=== PATIENT | female | born 1980 | race African-American/Black ===

== ENCOUNTER 2023-05-20 00:28 | Emergency (ER) | payer MEDICAID ==
[2023-05-20] MEDS ORDERED: Acetaminophen 500 MG Tab ONE (03:29)
[2023-05-20] MEDS ORDERED: Ondansetron 4 MG Tab.DIS ONE (03:29)
[2023-05-20] MEDS ORDERED: amLODIPine 5 MG Tab ONE (03:29)
[2023-05-20] MEDS ORDERED: Hydrochlorothiazide 25 MG Tab ONE (03:29)
[2023-05-20 08:58] LABS: A/G RATIO 0.8 (0.9-1.6); ALBUMIN 3.6 g/dL (3.4-5.0); BASOPHILS PERCENT AUTO 0.6 % (0.0-1.5); BILIRUBIN TOTAL 0.3 mg/dL (0.2-1.0); CALCIUM 8.9 mg/dL (8.5-10.1); CARBON DIOXIDE,CO2 26.6 mmol/L (21.0-32.0); CREATININE 0.8 mg/dL (0.6-1.0); EOSINOPHILS ABSOLUTE AUTO 0.1 K/uL (0.0-0.7); EOSINOPHILS PERCENT AUTO 1.5 % (0.0-7.0); EST CRCL DRUG DOSING (CG) 102.39 mL/min; HEMATOCRIT 35.7 % (36.0-46.0); HEMOGLOBIN 11.3 g/dL (12.0-16.0); LYMPHOCYTES ABSOLUTE AUTO 2.3 K/uL (0.6-2.4); MEAN CORPUSCULAR HEMOGLOBIN 27.6 pg (27.0-32.0); MEAN CORPUSCULAR HGB CONC 31.7 g/dL (31.0-37.0); MEAN CORPUSCULAR VOLUME 87.1 fL (80.0-98.0); MONOCYTES ABSOLUTE AUTO 0.4 K/uL (0.0-0.8); NEUTROPHILS ABSOLUTE AUTO 2.7 K/uL (1.4-5.7); NEUTROPHILS PERCENT AUTO 48.9 % (48.0-80.0); NRBC ABSOLUTE 0 K/uL; PLATELET COUNT,PLT 261 K/uL (150-400); POTASSIUM,K 3.7 mmol/L (3.5-5.1); WHITE BLOOD CELL COUNT,WBC 5.45 K/uL (4.0-11.0)
== END 2023-05-20 05:25 | disposition home or self-care (01) ==
LOC: MW.ED 00:28
DX: I10 Essential (primary) hypertension (principal)
CPT/HCPCS: 36415; 71045; 80053; 84484; 85025; 93005; 99284; A9270

== ENCOUNTER 2023-10-10 17:59 | Emergency (ER) | payer MEDICAID ==
[2023-10-10] MEDS ORDERED: Sodium Chloride 0.9% 10 ML Syringe FLUSH PRN (18:26)
[2023-10-10] MEDS ORDERED: Sodium Chloride 0.9% 2.5 ML Syringe FLUSH PRN (18:26)
[2023-10-10] MEDS ORDERED: Acetaminophen 500 MG Tab PO STA (18:29)
[2023-10-10] MEDS ORDERED: amLODIPine 5 MG Tab PO STA (18:29)
[2023-10-10] MEDS ORDERED: Hydrochlorothiazide 25 MG Tab PO STA (18:29)
[2023-10-10 18:41] LABS: BASOPHILS ABSOLUTE AUTO 0.06 K/uL (0.00-0.20); BASOPHILS PERCENT AUTO 0.7 % (0.0-1.0); EOSINOPHILS ABSOLUTE AUTO 0.11 K/uL (0.00-0.45); EOSINOPHILS PERCENT AUTO 1.2 % (0.0-6.0); HEMATOCRIT 31.5 % (37.0-47.0); HEMOGLOBIN 10.1 g/dL (12.0-16.0); IMMATURE GRAN ABSOLUTE AUTO 0.02 K/uL (0.00-0.05); IMMATURE GRAN PERCENT AUTO 0.2 % (0.0-0.4); LYMPHOCYTES ABSOLUTE AUTO 2.36 K/uL (1.00-4.80); LYMPHOCYTES PERCENT AUTO 26.7 % (24.0-44.0); MEAN CORPUSCULAR HEMOGLOBIN 28.4 pg (28.0-32.0); MEAN CORPUSCULAR HGB CONC 32.1 g/dL (32.0-36.0); MEAN CORPUSCULAR VOLUME 88.5 fL (83.0-99.0); MEAN PLATELET VOLUME 11.5 fL (9.4-12.3); MONOCYTES PERCENT AUTO 7.9 % (0.0-8.0); NEUTROPHILS ABSOLUTE AUTO 5.59 K/uL (1.80-7.70); NEUTROPHILS PERCENT AUTO 63.3 % (41.0-71.0); PLATELET COUNT,PLT 252 K/uL (150-400); RED BLOOD CELL COUNT 3.56 M/uL (4.10-5.30); WHITE BLOOD CELL COUNT,WBC 8.84 K/uL (3.9-11.3)
[2023-10-10 19:09] LABS: A/G RATIO 0.9 (0.9-1.6); ALBUMIN 3.5 g/dL (3.4-5.0); BILIRUBIN TOTAL 0.2 mg/dL (0.2-1.0); CALCIUM 8.8 mg/dL (8.5-10.1); CARBON DIOXIDE,CO2 28.8 mmol/L (21.0-32.0); CREATININE 0.8 mg/dL (0.6-1.0); EST CRCL DRUG DOSING (CG) 88.18 mL/min; POTASSIUM,K 3.3 mmol/L (3.5-5.1); PROTEIN TOTAL,TP 7.5 g/dL (6.4-8.2)
[2023-10-10 19:14] LABS: MAGNESIUM 1.9 mg/dL (1.8-2.4)
== END 2023-10-10 19:31 | disposition home or self-care (01) ==
LOC: MW.ED 17:59
DX: I10 Essential (primary) hypertension (principal); Z76.0 Encounter for issue of repeat prescription
CPT/HCPCS: 36415; 80053; 83690; 83735; 84484; 85025; 93005; 99284; A9270; J3490; 93010; 99283